=== PATIENT | female | born 1955 | race Asian ===

== ENCOUNTER 2022-01-20 18:06 | Emergency (ER) | payer OTHER ==
[~2022-01-20] VITALS: Ht 162.6 cm; Wt 61.2 kg
[~2022-01-20 18:06] MED LIST: EPOE40003 SQ; FAMO20TA8 PO; FURO-150 PO; IRON150C14 PO; LIP10 PO; LISI2.5T48 PO; METO25TA3 PO; SEVE400T PO; [UNRECOGNIZED DRUG - CODE]
[2022-01-20 18:20] VITALS: BP_SYST 158
[2022-01-20] MEDS ORDERED: NACL 0.9% 1,000 ML IV ONE (18:30)
[2022-01-20] MEDS ORDERED: ACETAMINOPHEN 500 MG TABLET PO ONE (18:30)
[2022-01-20 19:15] LABS: BASOPHILS % (AUTO) 0.4 % (0.0-2.0); EOSINOPHILS # (AUTO) 0.1 K/uL (0.0-0.4); EOSINOPHILS % (AUTO) 0.6 % (0.0-4.0); HEMATOCRIT 38.2 % (36-48); HEMOGLOBIN 12.9 g/dL (12.0-16.0); LYMPHOCYTES # (AUTO) 1.1 K/uL (1.0-5.5); LYMPHOCYTES % (AUTO) 10.2 % (20.5-51.5); MEAN CORPUSCULAR HEMOGLOBIN 29 pg (27-31); MEAN CORPUSCULAR HGB CONC 34 % (32-36); MEAN CORPUSCULAR VOLUME 86 fL (79.0-98.0); MONOCYTES # (AUTO) 0.6 K/uL (0.0-1.0); NEUTROPHILS # (AUTO) 9.4 K/uL (1.8-7.7); NEUTROPHILS % (AUTO) 83.8 % (40.0-70.0); PLATELET COUNT (AUTO) 163 K/uL (130-430); RED BLOOD CELL COUNT(AUTO) 4.42 MIL/uL (4.2-6.2); RED CELL DISTRIBUTION WIDTH 14.3 % (9.0-15.0); WHITE BLOOD COUNT (AUTO) 11.3 K/uL (4.8-10.8)
[2022-01-20 19:20] LABS: ANION GAP 9 (5-15); CHLORIDE 106 mmol/L (98-107); CREATININE 0.97 mg/dL (0.55-1.30); GLUCOSE 139 mg/dL (70-99); UREA NITROGEN, BLOOD 15 mg/dL (8-21)
[2022-01-20 19:21] LABS: GFR AFRICAN AMERICAN 74 mL/min (>90)
[2022-01-20 19:26] LABS: PROTHROMBIN TIME 10.4 SECS (9.5-12.5)
[2022-01-20 19:28] LABS: ALANINE AMINOTRANSFERASE 37 U/L (12-78); ALBUMIN 4.1 g/dL (3.4-4.8); ASPARTATE AMINOTRANSFERASE 20 U/L (10-37); TOTAL BILIRUBIN 0.8 mg/dL (0.0-1.0)
[2022-01-20 19:30] LABS: CALCIUM 10.1 mg/dL (8.4-11.0)
[2022-01-20 20:16] LABS: BILIRUBIN,URINE NEGATIVE (NEGATIVE); BLOOD, URINE NEGATIVE (NEGATIVE); CLARITY/URINE CLEAR (CLEAR); COLOR,URINE YELLOW (YELLOW); GLUCOSE,URINE NEGATIVE (NEGATIVE); KETONES,URINE NEGATIVE (NEGATIVE); NITRITE, URINE NEGATIVE (NEGATIVE); PROTEIN URINE NEGATIVE (NEGATIVE); UROBILINOGEN,URINE 0.2 (0.2-1.0)
[2022-01-20 20:21] LABS: LEUKOCYTE ESTERASE ,URINE TRACE (NEGATIVE)
[2022-01-20 20:22] LABS: BACTERIA,URINE FEW /HPF (None Seen); MUCUS,URINE None Seen /LPF (None Seen); RBC,URINE NONE SEEN /HPF (0-3)
[2022-01-20] MEDS ORDERED: BENZOCAINE 20% 0.5mL UD SPRAY MM ONE (20:45)
[2022-01-20] MEDS ORDERED: cephALEXin 500 MG CAPSULE PO ONE (20:45)
[2022-01-20] MEDS ORDERED: DEXAMETHASONE SOD PHOSPHATE 10 MG/ML VIAL PO ONE (20:45)
[2022-01-20] MEDS ORDERED: CEPH-548 PO (20:46)
[2022-01-20 21:46] VITALS: BP_SYST 145
== END 2022-01-20 21:46 | disposition home or self-care (01) ==
LOC: SED 18:06
DX: N39.0 Urinary tract infection, site not specified (principal); J02.9 Acute pharyngitis, unspecified; R05.9 Cough, unspecified; R50.9 Fever, unspecified; E11.9 Type 2 diabetes mellitus without complications; Z88.1 Allergy status to other antibiotic agents; Z79.899 Other long term (current) drug therapy; Z20.822 Contact with and (suspected) exposure to COVID-19
CPT/HCPCS: 99285; 96360; 71045; 87426; 80053; 81000; 83880; 85025; 85610; 85730; 86403; 87040; 87086; 84484; 36415; 93005; 87081; 83605; 87804 ×2; J7030